=== PATIENT | female | born 1960 | race Caucasian/White ===

== ENCOUNTER → 2021-04-20 07:06 | Outpatient (CLI) | payer MEDICAID, SELFPAY ==
--- NOTE | 2021-04-20 | CA_ITS ---
APPROVED REPORT Exam: Pharmacologic Technologist: Yelena Rivera, Ht: 5 ft 0 in Wt: 175 lbs BSA: 1.76 m2 HR: 66 bpm BP: 139/77 mmHg Medical History Medications: Omeprazole,,,,, Aspirin,,,,, Gabapentin,,,,, Irene,,,,, WELLBUTRIN,,,,, LoraTADINE,,,,, Baclofen,,,,, FluTICASONE,,,,, Fluoxetine,,,,, MeLATONIN,,,,, AtrovASTATIN,,,,, Levothyoxine,,,,, Stress Test Details Test: LEXISCAN HR Resting HR: 66 bpm Max Heart Rate (APMHR): 161.531965 bpm Max HR Achieved: 104 bpm Target HR (85% APMHR): 136.983200 bpm % of APMHR: 64.60 Recovery HR: 87 bpm BP Resting BP: 139/77 mmHg Max BP: 146/77 mmHg Recovery BP: 138.0/71.0 mmHg ECG Resting ECG: NSR Clinical Reason for Termination: Completed Protocol Exercise duration: 04:02 min Highest Stage Achieved: Exercise capacity: 1.0 METs Stress ECG Conclusion Symptoms: None Arrhythmias/Ectopy: None ST-T Changes: <1.5mm ST Segment changes Conclusion: Non-Diagnostic Electronically signed by : Fidel Almaguer, 04/20/2021 18:35:41
--- NOTE | 2021-04-20 07:12 | NM_ITS ---
APPROVED REPORT Exam: Nuclear Stress Test Indication: Abnormal EKG, HTN, Family history Patient Location: Outpatient Stress Tech: Yelena Rivera [place] Tech:Geovanna Robbins, ARRT, RT (R)(N) Ht: 5 ft 0 in Wt: 160 lbs Bra Size: B HR: 66 bpm BP: 139/77 mmHg BSA: 1.70 m2 History: Abnormal EKG, HTN, Family history Procedure: Patient received a 0.4 mg of intravenous Lexiscan, resting heart rate 66 bpm, resting blood pressure 139/77 mmHg, with Lexiscan maximum heart rate achived was 104 bpm which is Less than 85 % of the maximum predicted heart rate and blood pressure was 141/68 mmHg. With Lexiscan, patient denied any complaint of chest pain. Electrocardiogram Resting electrocardiogram showed sinus rhythm, with Lexiscan there is less than 1.[address] segment depression noted from the baseline EKG. The EKG portion of the Lexiscan is nondiagnostic. Cardiac Stress and Resting SPECT Images: Cardiac Stress and Resting SPECT images were obtained using technetium 99m Myoview 29.0 mCi stress and 10.60 mCi at rest. Unable to do prone images do to patient condition. Gated SPECT for analysis of segmental wall motion and calculation of the ejection fraction done. Cardiac stress and resting SPECT images show mild fixed defect in the inferior wall with normal contractility gated SPECT is likely secondary to soft tissue attenuation, no reversible ischemia seen, computer derived ejection fraction is 47% with no regional wall motion abnormality, right ventricle is normal size and contractility. Conclusion: 1. The EKG portion of the Lexiscan is nondiagnostic. 2. No scintigraphic evidence of reversible ischemia seen, computer derived ejection fraction is 47% with no regional wall motion abnormality, right ventricle is normal size and contractility. 3. Likely normal Lexiscan Myoview study. Electronically signed by : Fidel Almaguer, 04/20/2021 19:09:02
--- NOTE | 2021-04-20 08:58 | HMH.ITSHM ---
Current Home Medications as stated by this patient Edgardo Boland or marketing representative. []ASA ATORVASTATIN BACLOFEN FLUOXETINE FLUTICASONE GABAPENTIN LEVOTHYROXINE LORATADINE MELATONIN NORCO OMEPRAZOLE WELLBUTRIN
== END ==
PROVIDERS: PCP Internal Medicine Adolescent Medicine; Visit Provider Nurse Practitioner Family
DX: Z01.810 Encounter for preprocedural cardiovascular examination (principal); I10 Essential (primary) hypertension; I69.359 Hemiplegia and hemiparesis following cerebral infarction affecting unspecified side; Z82.49 Family history of ischemic heart disease and other diseases of the circulatory system; R94.01 Abnormal electroencephalogram [EEG]; Z79.899 Other long term (current) drug therapy
CPT/HCPCS: 78452; 93017; A9502; J2785